=== PATIENT | male | born 1935 | race Caucasian/White ===

== ENCOUNTER → 2017-02-20 | Outpatient (REF) ==
[~2017-02-20] MED LIST: ALDACTONE 25MG25 M1 PO; ALLOPURINOL100 MG PO; AMOXICILLIN 50500 MG PO; AMOXICILLIN/CLA1 TA1 PO; ASPIRIN 32325 MG/TAB PO; ATENOLOL50 MG PO; CARDIZEM CD 12120 MG PO; CARDIZEM CD 18180 MG PO; CLARITIN 1010 MG/TAB PO; CLOPIDOGREL PO; COUMADIN 5MG5 MG/TAB PO; CRESTOR 10MG10 MG PO; CRESTOR20 MG PO; CRESTOR40 MG PO; FOLIC ACID0.4 MG PO; GLUCOPHAGE500 MG/TAB PO; GLUCOSAMINE CHO1 CA2 PO; HCTZ 25MG TAB25 MG PO; HCTZ 25MG25 MG PO; HYTRIN 5MG C5 MG/CAP PO; IRON325 MG PO; K-DUR 10 MEQ T10 MEQ PO; LASIX 20MG TABL20 MG PO; LASIX 40MG TABL40 MG PO; LEVAQUIN 5500 MG/TA1 PO; LORATADINE10 MG PO; MOTRIN 600600 MG/TAB PO; NATURE S BLEND; NITROLINGU0.4 MG/ACT SL; OMEGA 31000 MG PO; PLETAL 100MG T100 MG PO; PRAVACHOL80 MG PO; PRILOSEC 20MG20 MG PO; TENORMIN 5050 MG/TAB PO; TERAZOSIN HCL PO; ULTRAM 50MG TAB50 MG PO; UNKNOWN ANTIBIOTIC; VALIUM 5MG T5 MG/TAB PO; VITAMIN B COMPL1 T16 PO; VITAMIN D1000 IU PO; ZOCOR80 MG PO; ZOLOFT 100MG100 MG PO; ZOLOFT100 MG PO; ZYLOPRIM 300MG300 MG PO
== END ==
LOC: ZLAB.WCH 18:09
DX: Z01.89 Encounter for other specified special examinations (principal)

== ENCOUNTER → 2018-03-21 | Outpatient (REF) | LOC: ZLAB.WCH 16:07 | DX: Z01.89 Encounter for other specified special examinations (principal) ==

== ENCOUNTER → 2018-05-23 | Outpatient (REF) ==
[2018-05-23 18:08] LABS: THYROID STIMULATING HORMONE 1.81 uIU/mL (0.465-4.680)
== END ==
LOC: ZLAB.WCH 17:21
PROVIDERS: Internal Medicine
DX: Z01.89 Encounter for other specified special examinations (principal)

== ENCOUNTER → 2018-06-13 | Outpatient (REF) | LOC: ZLAB.WCH 13:56 | DX: Z01.89 Encounter for other specified special examinations (principal) ==